=== PATIENT | female | born 1965 | race Caucasian/White ===

== ENCOUNTER 2021-05-08 19:22 | Emergency (ER) | payer OTHER ==
[~2021-05-08] VITALS: Ht 157.5 cm; Wt 48.1 kg
[2021-05-08] MEDS ORDERED: IBUPROFEN600 MG PO (19:58)
[2021-05-08] MEDS ORDERED: CEPHALEXIN500 MG PO (19:58)
[2021-05-08] MEDS ORDERED: BACTRIM DS TAB1 EACH PO (19:58)
[2021-05-08] MEDS ORDERED: CEFTRIAXONE 1 GM VIAL IM ONE (20:00)
[2021-05-08] MEDS ORDERED: KETOROLAC TROMETHAMINE 60 MG/2 ML VIAL IM ONE (20:00)
[2021-05-08] MEDS ORDERED: KETOROLAC TROMETHAMINE 60 MG/2 ML VIAL ONE (20:11)
[2021-05-08] MEDS ORDERED: CEFTRIAXONE 1 GM VIAL ONE (20:11)
== END 2021-05-08 20:45 | disposition home or self-care (01) ==
LOC: FSED 19:34
DX: R30.0 Dysuria (principal); N39.0 Urinary tract infection, site not specified; N73.2 Unspecified parametritis and pelvic cellulitis; E03.9 Hypothyroidism, unspecified
CPT/HCPCS: 81003; 99283; J0696; J1885